=== PATIENT | female | born 1980 | race Caucasian/White ===

== ENCOUNTER 2023-10-08 01:05 | Emergency (ER) | payer OTHER ==
[2023-10-08] MEDS ORDERED: LIDOCAINE 1% MPF 5 ML VIAL ONE (01:32)
[2023-10-08] MEDS ORDERED: DOXYCYCLINE 100 MG CAP PO ONE (02:14)
--- NOTE | 2023-10-08 02:14 | ER ---
Nurse's Notes [facility] Name: Ana Laura Gerber Age: 43 yrs Sex: Female : 1980 Arrival Date: 10/08/2023 Time: 01:05 Bed 14 Private MD: Diagnosis: Puncture wound with foreign body of right hand, initial encounter-fishhook right index finger , removed Presentation: 10/07 01:21 Chief complaint: Patient states: I was throwing the cast net, caught a gar. Gar pulled jb4 back and the hook went into my right index finger. Coronavirus screen: At this time, the client does not indicate any symptoms associated with coronavirus-19. Ebola Screen: No symptoms or risks identified at this time. Initial Sepsis Screen: Does the patient meet any 2 criteria? No. Patient's initial sepsis screen is negative. Does the patient have a suspected source of infection? No. Patient's initial sepsis screen is negative. Risk Assessment: Do you want to hurt yourself or someone else? Patient reports no desire to harm self or others. Onset of symptoms was October 08, 2023. Transition of care: patient was not received from another setting of care. 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 - Infectious Disease History:: Denies. - Social history:: Smoking status: Patient reports the use of cigarette tobacco products, smokes one pack cigarettes per day. - Family history:: not pertinent. Screenin:45 [facility] ED Fall Risk Assessment (Adult) History of falling in the last 3 months, bm8 including since admission No falls in past 3 months (0 pts) Confusion or Disorientation No (0 pts) Intoxicated or Sedated No (0 pts) Impaired Gait No (0 pts) Mobility Assist Device Used No (0 pt) Altered Elimination No (0 pt) Score/Fall Risk Level 0 - 2 = Low Risk Oriented to surroundings, Maintained a safe environment, Educated pt \T\ family on fall prevention, incl call for assistance when getting out of bed. Abuse screen: Denies threats or abuse. Nutritional screening: No deficits noted. Tuberculosis screening: No symptoms or risk factors identified. Assessment: 01:45 General: Appears distressed, uncomfortable, Behavior is calm, cooperative, crying. bm8 Pain: Complains of pain in palmar aspect of distal phalanx of right index finger Pain radiates to right hand Pain currently is 10 out of 10 on a pain scale. Neuro: No deficits noted. Level of Consciousness is awake, alert, obeys commands, Oriented to person, place, time, situation, Appropriate for age. Cardiovascular: Denies chest pain, Capillary refill < 3 seconds Patient's skin is warm and dry. Respiratory: No deficits noted. Airway is patent Respiratory effort is even, unlabored, Respiratory pattern is regular, symmetrical. GI: No deficits noted. No signs and/or symptoms were reported involving the gastrointestinal system. : No deficits noted. No signs and/or symptoms were reported regarding the genitourinary system. EENT: No deficits noted. No signs and/or symptoms were reported regarding the EENT system. Derm: No deficits noted. No signs and/or symptoms reported regarding the dermatologic system. Injury Description: Puncture sustained to palmar aspect of distal phalanx of right index finger is PT'S TIP OF RIGHT HAND INDEX FINGER PUNCTURED BY FISH HOOK. 02:09 Reassessment: Patient appears in no apparent distress at this time. Patient and/or bm8 family updated on plan of care and expected duration. Pain level reassessed. Patient is alert, oriented x 3, equal unlabored respirations, skin warm/dry/pink. Patient states feeling better. Patient states symptoms have improved. Vital Signs: 01:21 BP 178 / 95; Pulse 78; Resp 16; Pulse Ox 99% on R/A; Weight 58.97 kg; Height 5 ft. 0 jb4 in. (R); Pain 10/10; 02:09 BP 160 / 99; Pulse 68; Resp 20; Temp 98.2; Pulse Ox 99% ; Pain 2/10; bm8 01:21 Body Mass Index 25.39 (58.97 kg, 152.4 cm) jb4 01:21 Pain Scale: Adult jb4 02:09 Pain Scale: Adult bm8 [place] Coma Score: 01:45 Eye Response: spontaneous(4). Motor Response: obeys commands(6). Verbal Response: bm8 oriented(5). Total: 15. 02:09 Eye Response: spontaneous(4). Motor Response: obeys commands(6). Verbal Response: bm8 oriented(5). Total: 15. ED Course: 01:07 Patient arrived in ED. jj6 01:23 Triage completed. jb4 01:23 Arm band placed on right wrist. jb4 01:24 Rodo Burton MD is Attending Physician. carroll 01:33 Jaun Rogers, RN is Primary Nurse. bm8 01:45 Patient has correct armband on for positive identification. Bed in low position. Call bm8 light in reach. Side rails up X 1. Pulse ox on. NIBP on. Verbal reassurance given. 01:45 Assist provider with laceration repair on palmar aspect of distal phalanx of right bm8 index finger that was 2.5 cm. or less using IRRIGATED, CLEANED AND DRESSED . Set up tray. Performed by Rodo Burton MD Dressed with Neosporin, Patient tolerated well. Patient did not have IV access during this emergency room visit. Wound care: to puncture located on palmar aspect of distal phalanx of right index finger was cleaned with Betadine, irrigated with normal saline, dressed with Neosporin, Patient tolerated well. 02:09 Provided Education on: POST ER CARE. bm8 Administered Medications: 01:57 Drug: Lidocaine Infiltration (1 %) 1 application 5 ml Infiltration once; to bedside jb4 {Note: administered by ER provider..} Volume: 5 ml; Route: Infiltration; 02:08 Follow up: Response: No adverse reaction bm8 02:20 Follow up: Response: No adverse reaction bm8 02:01 Not Given (Duplicate Order): lidocaine(1 %) 5 mg Infiltration once jb4 02:08 Drug: Mupirocin Topical Ointment 2 % 1 application Topical once Route: Topical; Site: bm8 right hand; 02:20 Follow up: Response: No adverse reaction bm8 02:19 Drug: Hydrocodone-Acetaminophen PO (7.5 mg-325 mg) 1 tabs PO once Route: PO; bm8 02:24 Follow up: Response: No adverse reaction bm8 02:20 Drug: Doxycycline PO 200 mg PO once Route: PO; bm8 02:24 Follow up: Response: No adverse reaction bm8 Medication: 01:45 VIS not applicable for this client. bm8 Outcome: 02:13 Discharge ordered by . carroll 02:22 Discharged to home ambulatory, bm8 02:22 Condition: stable 02:22 Discharge instructions given to patient, Instructed on discharge instructions, follow up and referral plans. no drinking with medication, no driving heavy equipment, medication usage, safety practices, Demonstrated understanding of instructions, follow-up care, medications, Prescriptions given X 3, 02:24 Patient left the ED. bm8 Signatures: Rodo Burton MD MD cha Bryson, James, RN RN jb4 Alyssia Ybarra Brad, RN RN bm8 Corrections: (The following items were deleted from the chart) 02:24 02:22 Discharge instructions given to patient, Instructed on discharge instructions, bm8 follow up and referral plans. no drinking with medication, no driving heavy equipment, medication usage, safety practices, Demonstrated understanding of instructions, follow-up care, medications, Prescriptions given X 2, bm8
--- NOTE | 2023-10-08 02:14 | EDPHYS ---
Physician Documentation [facility] Name: Ana Laura Gerber Age: 43 yrs Sex: Female : 1980 Arrival Date: 10/08/2023 Time: 01:05 Bed 14 Private MD: BRENT Physician Rodo Burton HPI: 10/07 02:06 This 43 yrs old Female presents to ER via Ambulatory with complaints of FISH carroll HOOK LODGED IN FINGER. 02:06 The patient or guardian reports a puncture wound, hook. The complaints affect the carroll palmar aspect of distal phalanx of right index finger. Context: [place]. Modifying factors: The symptoms are alleviated by holding still, the symptoms are aggravated by movement, dependent position. Associated signs and symptoms: The patient has no apparent associated signs or symptoms. The patient has not experienced similar symptoms in the past. 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 - Infectious Disease History:: Denies. - Social history:: Smoking status: Patient reports the use of cigarette tobacco products, smokes one pack cigarettes per day. - Family history:: not pertinent. ROS: 02:06 Constitutional: Negative for fever, chills, and weight loss, Eyes: Negative for injury, carroll pain, redness, and discharge, ENT: Negative for injury, pain, and discharge, Neck: Negative for injury, pain, and swelling, Cardiovascular: Negative for chest pain, palpitations, and edema, Respiratory: Negative for shortness of breath, cough, wheezing, and pleuritic chest pain, Abdomen/GI: Negative for abdominal pain, nausea, vomiting, diarrhea, and constipation, Back: Negative for injury and pain, : Negative for injury, bleeding, discharge, and swelling, Skin: Negative for injury, rash, and discoloration, Neuro: Negative for headache, weakness, numbness, tingling, and seizure, Psych: Negative for depression, anxiety, suicide ideation, homicidal ideation, and hallucinations, Allergy/Immunology: Negative for hives, rash, and allergies, Endocrine: Negative for neck swelling, polydipsia, polyuria, polyphagia, and marked weight changes, Hematologic/Lymphatic: Negative for swollen nodes, abnormal bleeding, and unusual bruising, 02:06 MS/extremity: Positive for pain, tenderness, of the palmar aspect of distal phalanx of right index finger, Exam: 02:06 Constitutional: This is a well developed, well nourished patient who is awake, alert, carroll and in no acute distress. Head/Face: Normocephalic, atraumatic. Eyes: Pupils equal round and reactive to light, extra-ocular motions intact. Lids and lashes normal. Conjunctiva and sclera are non-icteric and not injected. Cornea within normal limits. Periorbital areas with no swelling, redness, or edema. ENT: Nares patent. No nasal discharge, no septal abnormalities noted. Tympanic membranes are normal and external auditory canals are clear. Oropharynx with no redness, swelling, or masses, exudates, or evidence of obstruction, uvula midline. Mucous membranes moist. Neck: Trachea midline, no thyromegaly or masses palpated, and no cervical lymphadenopathy. Supple, full range of motion without nuchal rigidity, or vertebral point tenderness. No Meningismus. Chest/axilla: Normal chest wall appearance and motion. Nontender with no deformity. No lesions are appreciated. Cardiovascular: Regular rate and rhythm with a normal S1 and S2. No gallops, murmurs, or rubs. Normal PMI, no JVD. No pulse deficits. Respiratory: Lungs have equal breath sounds bilaterally, clear to auscultation and percussion. No rales, rhonchi or wheezes noted. No increased work of breathing, no retractions or nasal flaring. Abdomen/GI: Soft, non-tender, with normal bowel sounds. No distension or tympany. No guarding or rebound. No evidence of tenderness throughout. Back: No spinal tenderness. No costovertebral tenderness. Full range of motion. Skin: Warm, dry with normal turgor. Normal color with no rashes, no lesions, and no evidence of cellulitis. Neuro: Awake and alert, GCS 15, oriented to person, place, time, and situation. Cranial nerves II-XII grossly intact. Motor strength 5/5 in all extremities. Sensory grossly intact. Cerebellar exam normal. Normal gait. Psych: Awake, alert, with orientation to person, place and time. Behavior, mood, and affect are within normal limits. 02:06 Musculoskeletal/extremity: Extremities: grossly normal except: pain, tenderness, puncture, ROM: full active range of motion, full passive range of motion, limited active range of motion due to pain, limited passive range of motion due to pain, Circulation is intact in all extremities. Sensation intact. Compartment Syndrome exam of affected extremity: is normal. Weight bearing: able to fully bear weight, without difficulty, Vital Signs: 01:21 BP 178 / 95; Pulse 78; Resp 16; Pulse Ox 99% on R/A; Weight 58.97 kg; Height 5 ft. 0 jb4 in. (R); Pain 10/10; 02:09 BP 160 / 99; Pulse 68; Resp 20; Temp 98.2; Pulse Ox 99% ; Pain 2/10; bm8 01:21 Body Mass Index 25.39 (58.97 kg, 152.4 cm) jb4 01:21 Pain Scale: Adult jb4 02:09 Pain Scale: Adult bm8 [place] Coma Score: 01:45 Eye Response: spontaneous(4). Motor Response: obeys commands(6). Verbal Response: bm8 oriented(5). Total: 15. 02:09 Eye Response: spontaneous(4). Motor Response: obeys commands(6). Verbal Response: bm8 oriented(5). Total: 15. Procedures: 02:09 Foreign Body Removal: a fishhook, from the right by re sheath needle. [facility] MDM: 01:24 Patient medically screened. [facility] 02:09 Differential diagnosis: abrasion, fish hook removal. Data reviewed: vital signs, nurses carroll notes. Consideration of Admission/Observation Escalation of care including admission/observation considered. I considered the following discharge prescriptions or medication management in the emergency department Medications were administered in the Emergency Department. See MAR. Test considered but Not performed: X-ray: no x ray needed. Historians other than the Patient: pt well informed. Care significantly affected by the following chronic conditions: no hx. Counseling: I had a detailed discussion with the patient and/or guardian regarding the historical points, exam findings, and any diagnostic results supporting the discharge/admit diagnosis, the need for outpatient follow up, for definitive care, a family practitioner. 10/07 01:56 Order name: Dressing - Wound; Complete Time: 01:56 jb4 10/07 01:56 Order name: Gloves, Sterile; Complete Time: jb4 Administered Medications: 01:57 Drug: Lidocaine Infiltration (1 %) 1 application 5 ml Infiltration once; to bedside jb4 {Note: administered by ER provider..} Volume: 5 ml; Route: Infiltration; 02:08 Follow up: Response: No adverse reaction bm8 02:20 Follow up: Response: No adverse reaction bm8 02:01 Not Given (Duplicate Order): lidocaine(1 %) 5 mg Infiltration once jb4 02:08 Drug: Mupirocin Topical Ointment 2 % 1 application Topical once Route: Topical; Site: bm8 right hand; 02:20 Follow up: Response: No adverse reaction bm8 02:19 Drug: Hydrocodone-Acetaminophen PO (7.5 mg-325 mg) 1 tabs PO once Route: PO; bm8 02:24 Follow up: Response: No adverse reaction bm8 02:20 Drug: Doxycycline PO 200 mg PO once Route: PO; bm8 02:24 Follow up: Response: No adverse reaction bm8 Disposition Summary: 10/08/23 02:13 Discharge Ordered Notes: Location: Home carroll Problem: new carroll Symptoms: have improved carroll Condition: Stable carroll Diagnosis - Puncture wound with foreign body of right hand, initial encounter - fishhook right carroll index finger , removed Followup: carroll - With: Private Physician - When: 2 - 3 days - Reason: Recheck today's complaints, Continuance of care, Re-evaluation by your physician Discharge Instructions: - Discharge Summary Sheet carroll - Puncture Wound carroll - Puncture Wound, [id number] carroll - [place] Removal carroll Forms: - Medication Reconciliation Form carroll - Antibiotic Education carroll - Prescription Opioid Use carroll - Patient Portal Instructions [facility] - Leadership Thank You Letter [facility] Prescriptions: - [place] 2 % Topical ointment - apply 1 application TOPICAL route 3 times per day; 15 gram tube; Refills: 0, carroll Product Selection Permitted - acetaminophen-codeine 300-30 mg Oral tablet - take 2 tablet ORAL route every 6 hours as needed for pain; 18 tablet; Refills: carroll 0, Product Selection Permitted - Doxycycline Hyclate 100 mg Oral tablet - take 1 tablet ORAL route every 12 hours; 14 tablet; Refills: 0, Product carroll Selection Permitted Signatures: Rodo Burton MD MD cha Bryson, James, RN RN jb4 Jaun Rogers, RN RN bm8
[2023-10-08] MEDS ORDERED: HYDROCODONE/APAP 7.5/325 MG TAB ONE (02:15)
[2023-10-08 15:04] VITALS: BP 160/99; TEMP 98.2; O2SAT 99
== END 2023-10-08 02:24 | disposition home or self-care (01) ==
LOC: ER 01:05
DX: S61.240A Puncture wound with foreign body of right index finger without damage to nail, initial encounter (principal); Z88.8 Allergy status to other drugs, medicaments and biological substances
CPT/HCPCS: 99284; J2001